=== PATIENT | male | born 1960 | race Caucasian/White ===

== ENCOUNTER 2017-11-08 18:12 | Emergency (ER) | payer MEDICARE, OTHER ==
[~2017-11-08] VITALS: Ht 175.3 cm; Wt 98.0 kg
[~2017-11-08 18:12] MED LIST: ALBU90OI INH; BENZ100A PO; BUSP10 PO; Bactrim Ds Tab1 EACH PO; Cheratussin AC118 ML PO; Cyclobenzaprine5 MG PO; HYDACE5 PO; IBUP800 PO; Keflex500 MG PO; Mucinex600 MG PO; Naprosyn500 MG PO; Neurontin 300300 MG PO; Norco 5-325 Ta1 EACH PO; OMEPRAZOLE MAGN20 MG PO; PROM25 PO; Prednisone20 MG PO; QVAR7.3 G1 IH; SPIRIVA RESPIMAT4 GM IH; SULTRIDS PO; SULTRISS PO; Ultram50 MG PO; Valium5 MG PO; Ventolin/Prove6.7 GM INH; ZESTORETIC 20-121 EA PO; Zithromax250 MG PO; Zofran Odt4 MG SL; [UNRECOGNIZED DRUG - REMARK]
[2017-11-08 19:15] LABS: BASOPHILS ABSOLUTE AUTO 0.05 K/mm3 (0.00-0.23); BASOPHILS PERCENT AUTO 1 % (0-2); EOSINOPHILS ABSOLUTE AUTO 0.51 K/mm3 (0.00-0.68); EOSINOPHILS PERCENT AUTO 7 % (0-6); Hematocrit 45.6 % (37.0-53.0); Hemoglobin 15.3 g/dL (13.5-17.5); IMMATURE GRAN ABSOLUTE AUTO 0.02 K/mm3 (0.00-0.10); IMMATURE GRAN PERCENT AUTO 0 % (0-1); LYMPHOCYTES ABSOLUTE AUTO 2.52 K/mm3 (0.84-5.20); LYMPHOCYTES PERCENT AUTO 33 % (21-46); MONOCYTES ABSOLUTE AUTO 0.86 K/mm3 (0.16-1.47); MONOCYTES PERCENT AUTO 11 % (4-13); Mean Corpuscular HGB 30.8 pg (26.0-34.0); Mean Corpuscular HGB Conc 33.6 g/dL (31.5-36.5); Mean Corpuscular Volume 92 fL (80-100); Mean Platelet Volume 9.8 fL (9.1-12.4); NEUTROPHILS ABSOLUTE AUTO 3.58 K/mm3 (1.96-9.15); NEUTROPHILS PERCENT AUTO 47 % (41-73); Platelet Count 247 K/mm3 (150-400); RDW Coefficient Variation 11.9 % (11.7-14.2); RDW Standard Deviation 39.8 fL (35.1-46.3); Red Blood Cell Count 4.96 M/mm3 (4.30-5.90); White Blood Cell Count 7.54 K/mm3 (4.00-11.30)
[2017-11-08 19:40] LABS: Alanine Aminotransfer (ALT/SGP 47 U/L (12-78); Albumin, Blood 3.6 g/dL (3.4-5.0); Albumin/Globulin Ratio 0.9 (0.8-1.8); Alk Phos 95 U/L (50-136); Anion Gap 7 mmol/L (6-16); Aspartate Aminotrans (AST/SGOT 35 U/L (12-37); Bilirubin, Total 0.3 mg/dL (0.1-1.0); Blood Urea Nitrogen 15 mg/dL (8-24); Bun/Creatinine Ratio 17.4 (12.0-20.0); CO2, Blood 25 mmol/L (21-32); Chloride, Blood 104 mmol/L (98-108); Creatinine, Blood 0.86 mg/dL (0.60-1.20); Globulin, Blood 3.8 g/dL (2.2-4.0); Glomerular Filtration Rate >60 (60-); Glucose, Blood 124 mg/dL (70-99); Potassium, Blood 3.9 mmol/L (3.5-5.5); Sodium, Blood 136 mmol/L (136-145); Total Protein, Blood 7.4 g/dL (6.4-8.2)
[2017-11-08 19:41] LABS: Troponin I <0.015 ng/mL (0.000-0.040)
[2017-11-08 20:23] LABS: Source, Urine Clean Catch
[2017-11-08 20:29] LABS: Bilirubin, Urine Neg (Neg); Blood, Urine 1+ (Neg); Glucose Qualitative, Urine Neg (Neg); Ketones, Urine Neg (Neg); Leukocyte Esterase, Urine Neg (Neg); Nitrite, Urine Neg (Neg); Protein, Urine Neg (Neg); Specific Gravity, Urine 1.015 (1.003-1.022); Urobilinogen, Urine NORM (Normal)
[2017-11-08 20:43] LABS: Appearance, Urine Clear (Clear); Color, Urine Yellow (P-Yellow)
[2017-11-08 20:45] LABS: Bacteria Not Seen /hpf; Red Blood Cells, Urine 0-2 /hpf (0-2); Squamous Epithelial Cells Not Seen /hpf (Few); White Blood Cells, Urine Not Seen /hpf (0-5)
== END 2017-11-08 21:00 | disposition left against medical advice (07) ==
LOC: ER 18:12
PROVIDERS: Physician Assistant
DX: Z53.21 Procedure and treatment not carried out due to patient leaving prior to being seen by health care provider (principal)
CPT/HCPCS: 36415; 71046; 80053; 81001; 83880; 84484; 85025; 93005; 93010

== ENCOUNTER 2018-02-03 14:54 | Emergency (ER) | payer MEDICARE, OTHER ==
[~2018-02-03] VITALS: Ht 175.3 cm; Wt 93.0 kg
[2018-02-03 15:55] LABS: BASOPHILS ABSOLUTE AUTO 0.05 K/mm3 (0.00-0.23); BASOPHILS PERCENT AUTO 1 % (0-2); EOSINOPHILS ABSOLUTE AUTO 0.26 K/mm3 (0.00-0.68); EOSINOPHILS PERCENT AUTO 3 % (0-6); Hematocrit 48.7 % (37.0-53.0); Hemoglobin 16.2 g/dL (13.5-17.5); IMMATURE GRAN ABSOLUTE AUTO 0.03 K/mm3 (0.00-0.10); IMMATURE GRAN PERCENT AUTO 0 % (0-1); LYMPHOCYTES PERCENT AUTO 27 % (21-46); MONOCYTES ABSOLUTE AUTO 0.75 K/mm3 (0.16-1.47); MONOCYTES PERCENT AUTO 8 % (4-13); Mean Corpuscular HGB 30.8 pg (26.0-34.0); Mean Corpuscular HGB Conc 33.3 g/dL (31.5-36.5); Mean Corpuscular Volume 93 fL (80-100); Mean Platelet Volume 9.9 fL (9.1-12.4); NEUTROPHILS ABSOLUTE AUTO 5.56 K/mm3 (1.96-9.15); NEUTROPHILS PERCENT AUTO 61 % (41-73); Platelet Count 263 K/mm3 (150-400); RDW Coefficient Variation 11.9 % (11.7-14.2); Red Blood Cell Count 5.26 M/mm3 (4.30-5.90); White Blood Cell Count 9.15 K/mm3 (4.00-11.30)
[2018-02-03 16:08] LABS: Alanine Aminotransfer (ALT/SGP 45 U/L (12-78); Albumin, Blood 3.7 g/dL (3.4-5.0); Albumin/Globulin Ratio 0.9 (0.8-1.8); Alk Phos 87 U/L (50-136); Anion Gap 9 mmol/L (6-16); Aspartate Aminotrans (AST/SGOT 28 U/L (12-37); Bilirubin, Total 0.4 mg/dL (0.1-1.0); Blood Urea Nitrogen 18 mg/dL (8-24); Bun/Creatinine Ratio 20.7 (12.0-20.0); CO2, Blood 22 mmol/L (21-32); Calcium, Blood 8.9 mg/dL (8.5-10.1); Chloride, Blood 103 mmol/L (98-108); Creatinine, Blood 0.87 mg/dL (0.60-1.20); Globulin, Blood 3.9 g/dL (2.2-4.0); Glomerular Filtration Rate >60 (60-); Glucose, Blood 180 mg/dL (70-99); Potassium, Blood 3.9 mmol/L (3.5-5.5); Sodium, Blood 134 mmol/L (136-145); Total Protein, Blood 7.6 g/dL (6.4-8.2)
== END 2018-02-03 17:50 | disposition home or self-care (01) ==
LOC: ER 14:54
PROVIDERS: Emergency Medicine
DX: R10.11 Right upper quadrant pain (principal); Z91.030 Bee allergy status; Z88.5 Allergy status to narcotic agent; Z79.899 Other long term (current) drug therapy; Z79.52 Long term (current) use of systemic steroids; J44.9 Chronic obstructive pulmonary disease, unspecified; I10 Essential (primary) hypertension; Z90.49 Acquired absence of other specified parts of digestive tract; F17.210 Nicotine dependence, cigarettes, uncomplicated
CPT/HCPCS: 36415; 74176; 76705; 80053; 83690; 85025; 93005; 93010; 96361; 96374; 96375; 96376; 99284-25; J1170; J2405; J7030

== ENCOUNTER → 2018-02-21 | Outpatient (CLI) | payer MEDICARE, OTHER ==
[2018-02-21 13:22] LABS: Adenovirus F 40/41 Not Detected (NOT DETECT); Astrovirus Not Detected (NOT DETECT); Campylobacter Sp Not Detected (NOT DETECT); Cryptosporidium Not Detected (NOT DETECT); Cyclospora Cayetanensis Not Detected (NOT DETECT); E. Coli O157 Not Detected (NOT DETECT); Entamoeba Histolytica Not Detected (NOT DETECT); Enteroaggregative E. coli-EAEC Not Detected (NOT DETECT); Enteropathogenic E. coli-EPEC Not Detected (NOT DETECT); Enterotoxigenic E. coli-ETEC Not Detected (NOT DETECT); Giardia Lamblia Not Detected (NOT DETECT); Norovirus GI/GII Not Detected (NOT DETECT); Plesiomonas Shigelloides Not Detected (NOT DETECT); Rotavirus A Not Detected (NOT DETECT); Salmonella Sp Not Detected (NOT DETECT); Sapovirus Not Detected (NOT DETECT); Shiga Toxin-prod E. coli-STEC Not Detected (NOT DETECT); Shigella/Enteroin E. coli-EIEC Not Detected (NOT DETECT); Vibrio Cholerae Not Detected (NOT DETECT); Vibrio Sp Not Detected (NOT DETECT); Yersinia Enterocolitica Not Detected (NOT DETECT)
== END | disposition home or self-care (01) ==
LOC: LAB SHORT 12:45 → LAB SRC 12:45 → LAB FUT 02-14 11:15
PROVIDERS: Internal Medicine Gastroenterology
DX: R10.11 Right upper quadrant pain (principal); R10.32 Left lower quadrant pain
CPT/HCPCS: 83993; 87507

== ENCOUNTER 2018-04-20 11:52 | Day surgery (SDC) | payer MEDICARE, OTHER ==
[~2018-04-20] VITALS: Ht 175.3 cm; Wt 102.1 kg
[~2018-04-20 11:52] MED LIST changes: +ALBU2.5V5 NEB; +B Complex #11 EACH PO; +Bentyl20 MG PO; +CLON.5 PO; +EPIPEN 2-P0.3 MG/0.3 IM; +Omeprazole20 M1 PO; +TIOT18 INH
[2018-04-20] MEDS ORDERED: IBUP800 PO (12:46)
[2018-04-20] MEDS ORDERED: Bentyl20 MG PO (12:47)
[2018-04-20] MEDS ORDERED: DIAZ5 PO (12:47)
--- NOTE | 2018-04-20 14:21 | NUR ---
04/20/18 1421 Jelani Borja AT START OF PROCEDURE PT O2 DROPPED TO LOW 90S ON 3L O2. INCREASED O2 TO 5L. PT O2 REMAINED IN MID TO HIGH 90S. VSS.
== END 2018-04-20 14:55 | disposition home or self-care (01) ==
LOC: ORSCSDS 11:52
PROVIDERS: Internal Medicine Gastroenterology
PROC: 0DB68ZX Excision of Stomach, Via Natural or Artificial Opening Endoscopic, Diagnostic (ICD-10-PCS; principal; 2018-04-20 13:15)
PROC: 0DBL8ZX Excision of Transverse Colon, Via Natural or Artificial Opening Endoscopic, Diagnostic (ICD-10-PCS; principal; 2018-04-20 13:15)
DX: R10.11 Right upper quadrant pain (principal); K29.80 Duodenitis without bleeding; K64.8 Other hemorrhoids; K57.30 Diverticulosis of large intestine without perforation or abscess without bleeding; K29.70 Gastritis, unspecified, without bleeding; J44.9 Chronic obstructive pulmonary disease, unspecified; F41.8 Other specified anxiety disorders; R10.12 Left upper quadrant pain; K21.9 Gastro-esophageal reflux disease without esophagitis; E78.00 Pure hypercholesterolemia, unspecified; F17.210 Nicotine dependence, cigarettes, uncomplicated; Z79.899 Other long term (current) drug therapy
CPT/HCPCS: 88305; 88342; J2250; J7120

== ENCOUNTER → 2018-06-06 | Outpatient (CLI) | payer MEDICARE, OTHER ==
[~2018-06-06] MED LIST changes: +DIAZ5 PO
[2018-06-06 15:12] LABS: Anion Gap 8 mmol/L (6-16); Blood Urea Nitrogen 24 mg/dL (8-24); Bun/Creatinine Ratio 32.3 (12.0-20.0); CO2, Blood 25 mmol/L (21-32); Calcium, Blood 9.1 mg/dL (8.5-10.1); Chloride, Blood 101 mmol/L (98-108); Creatinine, Blood 0.74 mg/dL (0.60-1.20); Glomerular Filtration Rate >60 (60-); Glucose, Blood 123 mg/dL (70-99); Potassium, Blood 4.3 mmol/L (3.5-5.5); Sodium, Blood 134 mmol/L (136-145)
== END | disposition home or self-care (01) ==
LOC: LAB SHORT 14:19 → LAB 14:19
PROVIDERS: Physician Assistant
DX: R73.9 Hyperglycemia, unspecified (principal); E87.1 Hypo-osmolality and hyponatremia
CPT/HCPCS: 80048; 83036

== ENCOUNTER 2024-10-26 07:48 | Day surgery (SDC) | payer OTHER ==
[~2024-10-26] VITALS: Ht 175.3 cm; Wt 80.6 kg
[2024-10-26] MEDS ORDERED: ATOR40TA (08:12)
[2024-10-26] MEDS ORDERED: METO5A (08:12)
[2024-10-26] MEDS ORDERED: D3 (08:13)
[2024-10-26] MEDS ORDERED: ONDA4ODT (08:14)
[2024-10-26] MEDS ORDERED: E (08:14)
[2024-10-26] MEDS ORDERED: POTA8 (08:15)
[2024-10-26] MEDS ORDERED: Ondansetron HCl 2 MG / ML 2ML Vial ONE (08:38)
[2024-10-26 10:31] VITALS: BP 138/97
--- NOTE | 2024-10-26 10:36 | NUR ---
10/26/24 1036 Reeves, Carlyn IV DISCONTINUED WITH ONLY 50ML LR REMAINING IN 5OOML BAG. WILL DEFER TO RN RDS TO ADJUST FLUID AMOUNTS GIVEN IN PROCEDURE AMOUNT SHOWS 5OOML REMAINING.
== END 2024-10-26 10:27 | disposition home or self-care (01) ==
LOC: ORSCSDS 07:48
PROVIDERS: Specialist
PROC: 0DB68ZX Excision of Stomach, Via Natural or Artificial Opening Endoscopic, Diagnostic (ICD-10-PCS; principal; 2024-10-26 09:15)
PROC: 0DB58ZX Excision of Esophagus, Via Natural or Artificial Opening Endoscopic, Diagnostic (ICD-10-PCS; principal; 2024-10-26 09:15)
PROC: 0D758ZZ Dilation of Esophagus, Via Natural or Artificial Opening Endoscopic (ICD-10-PCS; principal; 2024-10-26 09:15)
DX: R13.10 Dysphagia, unspecified (principal); K21.9 Gastro-esophageal reflux disease without esophagitis; R12 Heartburn; R11.2 Nausea with vomiting, unspecified; Z87.11 Personal history of peptic ulcer disease; E11.9 Type 2 diabetes mellitus without complications; F41.9 Anxiety disorder, unspecified; J44.9 Chronic obstructive pulmonary disease, unspecified; I10 Essential (primary) hypertension; E78.5 Hyperlipidemia, unspecified; Z79.899 Other long term (current) drug therapy; F17.210 Nicotine dependence, cigarettes, uncomplicated
CPT/HCPCS: 82947; 88305; 88342; C1769; J2405; J2704; J7120